=== PATIENT | male | born 1965 | race Two or more races ===

== ENCOUNTER 2023-02-25 10:25 | Outpatient (CLI) | payer OTHER ==
[~2023-02-25 10:25] MED LIST: ENALAPRIL MALEA10 MG; SIMVASTATIN20 MG
== END 2023-02-25 10:30 | disposition home or self-care (01) ==
LOC: RAD 10:25
PROVIDERS: ATTEND Orthopaedic Surgery
DX: M25.561 Pain in right knee (principal)